=== PATIENT | male | born 1955 | race Caucasian/White ===

== ENCOUNTER 2024-02-06 13:40 | Emergency (ER) | payer BC ==
[~2024-02-06] VITALS: Ht 170.2 cm; Wt 70.0 kg
[2024-02-06 13:57] VITALS: BP 124/77; PULSE 78; RESP 18; TEMP 98.4; O2SAT 99
[2024-02-06] MEDS ORDERED: KETOROLAC 60MG/2ML VIAL IM ONE (14:45)
== END 2024-02-06 14:05 | disposition left against medical advice (07) ==
LOC: ER 13:40
DX: M54.9 Dorsalgia, unspecified (principal); Z53.21 Procedure and treatment not carried out due to patient leaving prior to being seen by health care provider
CPT/HCPCS: 99281; J1885